=== PATIENT | male | born 1980 | race African-American/Black ===

== ENCOUNTER 2024-11-28 13:19 | Emergency (ER) | payer SELFPAY ==
[~2024-11-28] VITALS: Ht 172.7 cm; Wt 61.2 kg
[2024-11-28 13:19] VITALS: BP 149/111; PULSE 60; RESP 16; TEMP 98.4; O2SAT 98
[2024-11-28] MEDS ORDERED: COMPAZINE ONE (13:39)
[2024-11-28] MEDS ORDERED: TORADOL ONE (13:39)
[2024-11-28] MEDS ORDERED: NS 1000ML 1,000 ML ONE (13:39)
[2024-11-28] MEDS: NS 1000ML 1,000 ML STA (13:43)
[2024-11-28] MEDS: COMPAZINE IV STA (13:43)
[2024-11-28] MEDS: TORADOL IV STA (13:44)
[2024-11-28 13:51] LABS: LEUKOCYTE ESTERASE ,URINE TRACE (NEGATIVE); NITRATE,URINE NEGATIVE (NEGATIVE)
[2024-11-28 13:56] LABS: BASOPHIL # 0.0 10^3/uL (0.0-0.1); BASOPHIL % 0.9 % (0.2-1.2); EOSINOPHIL # 0.1 10^3/uL (0.0-0.2); EOSINOPHIL % 2.1 % (0.0-5.0); HEMATOCRIT(ML) 47.2 % (37.0-53.0); IG % 0.20 % (0.00-0.50); LYMPHOCYTES # 1.34 10^3/uL1 (1.0-4.8); LYMPHOCYTES % 30.7 % (24.0-44.0); MEAN CORP HGB 27.0 pg (26-34); MEAN CORP HGB CONCENTRATION 32.2 g/dL (33-36.5); MEAN CORP VOLUME 83.8 fL (78-100); MONOCYTES # 0.4 10^3/uL (0.3-0.8); MONOCYTES % 9.6 % (5.0-12.0); NEUTROPHIL # 2.5 10^3/uL (1.8-7.7); NEUTROPHILS % 56.5 % (41.0-85.0); RED BLOOD CELL 5.63 10^6/uL (4.50-5.90); RED CELL DISTRIBUTION WIDTH 13.0 % (11.5-14.5); WHITE BLOOD CELL 4.4 10^3/uL (4.5-11.0)
[2024-11-28 13:59] LABS: APPEARANCE,URINE CLOUDY; UA COLOR YELLOW
[2024-11-28 14:14] LABS: INR 1.0; PROTHROMBIN PROTIME 10.0 SEC (9.3-11.6)
[2024-11-28 14:16] LABS: ALANINE AMINOTRANSFERASE(ML) 32.0 U/L (12-78); ALBUMIN(ML) 4.2 g/dL (3.4-5.0); CREATININE SERUM 1.18 mg/dL (0.59-1.40); EST GFR, NON-AA 66.5 (>/=60)
[2024-11-28] MEDS ORDERED: NS 100ML 100 ML IV ONE (14:20)
[2024-11-28] MEDS ORDERED: ROCEPHIN ONE (14:20)
[2024-11-28] MEDS: ROCEPHIN 2 GM-D5W BAG 50 ML IV STA (14:23)
[2024-11-28 14:33] VITALS: BP 119/92; PULSE 73; RESP 16; TEMP 98.4; O2SAT 98
[2024-11-28 14:56] VITALS: BP 167/79; PULSE 69; RESP 16; TEMP 98.4; O2SAT 98
== END 2024-11-28 15:05 | disposition home or self-care (01) ==
LOC: ER 13:19
DX: N30.90 Cystitis, unspecified without hematuria (principal); I10 Essential (primary) hypertension; Z88.0 Allergy status to penicillin; Z88.7 Allergy status to serum and vaccine; Z98.890 Other specified postprocedural states
CPT/HCPCS: 99285; 74176; 96374; 96375; 96361; 87086; 80053; 85025; 86677; 36415; 81001; 83690; 85610; 85730; J1885; J7030; J0780; J0696